=== PATIENT | male | born 1975 | race Caucasian/White ===

== ENCOUNTER 2016-11-30 06:10 | Emergency (ER) | payer SELFPAY ==
[2016-11-30] MEDS ORDERED: Albuterol/Ipratropium NEB.SOL* Albuterol 2.5 MG/Ipratropium 0.5 MG 3 ML ONE (06:21)
[2016-11-30] MEDS ORDERED: Albuterol/Ipratropium NEB.SOL* Albuterol 2.5 MG/Ipratropium 0.5 MG 3 ML INH ONE (06:32)
[2016-11-30] MEDS ORDERED: predniSONE TAB* 20 MG PO ONE (08:16)
[2016-11-30] MEDS ORDERED: Albuterol HFA INHALER* 8 gm MDI INH ONE (08:19)
[2016-11-30 11:35] VITALS: BP 124/95
--- NOTE | 2016-12-07 21:56 | ED ---
Deena Gauthier SooYoung, scribed for Allen Lucero MD on 11/30/16 at 0751 . Asthma - HPI Summary HPI Summary: A 41 y/o M presents to ED with SOB onset yesterday afternoon. Pert PMHx: seasonal asthma, sleep apnea. Pt states he lost his inhaler. Associated sx: cough. Denies fever. Aggravating factors: deep breaths. Pt is a smoker. He states feeling better at bedside after ED treatment. He doesn't have insurance or a PCP. Former [employer]. - History of Current Complaint Chief Complaint: EDAsthma Stated Complaint: ASTHMA ATTACK Hx Obtained From: Patient Onset/Duration: Lasting Hours - onset yesterday afternoon, Resolved - ED treatment Timing: Constant Initial Severity: Moderate Current Severity: None Pain Intensity: 0 Pain Scale Used: 0-10 Numeric Location/Character: Cough (Nonproductive) Aggravating Symptoms: Weather Change - "summer allergies", Other: - deep breaths - Allergy/Home Medications Allergies/Adverse Reactions: Allergies Allergy/AdvReac Type Severity Reaction Status Date / Time Aspirin [ASA] Allergy Unknown Unknown Verified 12/25/14 08:17 Reaction Details PMH/Surg Hx/FS Hx/Imm Hx Previously Healthy: No Respiratory History: Reports: Hx Asthma Psychiatric History: Reports: Hx Anxiety, Hx Depression Infectious Disease History: No Infectious Disease History: Denies: Traveled Outside the [place] in Last 30 Days - Family History Known Family History: Negative: Cardiac Disease, Hypertension, Diabetes - Social History Occupation: Employed Full-time Lives: With Family Alcohol Use: Weekly Alcohol Amount: "most days" Hx Substance Use: No Substance Use Type: Reports: None Hx Tobacco Use: Yes Smoking Status (MU): Heavy Every Day Tobacco Smoker Review of Systems Negative: Fever, Chills Negative: Erythema Negative: Sore Throat Negative: Chest Pain Positive: Shortness Of Breath, Cough Negative: Abdominal Pain, Vomiting, Nausea Negative: dysuria, hematuria Negative: Myalgia, Edema Negative: Rash Neurological: Other - neg: dizziness All Other Systems Reviewed And Are Negative: Yes Physical Exam - Summary Physical Exam Summary: Constitutional: Well-developed, Well-nourished, Alert. (-) Distressed Skin: Warm, Dry HENT: Normocephalic; Atraumatic Eyes: Conjunctiva normal Neck: Musculoskeletal ROM normal neck. (-) JVD, (-) Stridor, (-) Tracheal deviation Cardio: Rhythm regular, rate normal, Heart sounds normal; Intact distal pulses; The pedal pulses are 2+ and symmetric. Radial pulses are 2+ and symmetric. (-) Murmur Pulmonary/Chest wall: Diminished breath sounds. (-) Respiratory distress, (-) Wheezes, (-) Rales Abd: Soft, (-) Tenderness, (-) Distension, (-) Guarding, (-) Rebound Musculoskeletal: (-) Edema Lymph: (-) Cervical adenopathy Neuro: Alert, Oriented x3 Psych: Mood and affect Normal Triage Information Reviewed: Yes Vital Signs On Initial Exam: Initial Vitals BP 115/71 11/30/16 06:13 Vital Signs Reviewed: Yes - Monica Coma Scale Coma Scale Total: 15 Diagnostics - Vital Signs Vital Signs Temp Pulse Resp BP Pulse Ox 11/30/16 07:00 126/77 11/30/16 06:48 95 96 11/30/16 06:30 89 104/68 100 11/30/16 06:23 97.8 F 90 26 115/71 100 11/30/16 06:16 98 F 99 22 115/71 96 11/30/16 06:15 97 95 11/30/16 06:13 115/71 - Laboratory Lab Statement: Any lab studies that have been ordered have been reviewed, and results considered in the medical decision making process. Asthma Course/Dx - Course Course Of Treatment: Pt is a 41 y/o M presenting with SOB onset yesterday afternoon. Pert PMHx: seasonal asthma, sleep apnea. Pt states he lost his inhaler. Associated sx: cough. Denies fever. Aggravating factors: deep breaths. Pt is a smoker. He doesn't have insurance or a PCP. [employer]. Pt given duoneb, prednisone in ED. Pt is improved after treatment. Will D/C, pt given written prescriptions for Albuterol, Prednisone. [place] [facility]. - Diagnoses Provider Diagnoses: Asthma exacerbation Discharge - Discharge Plan Condition: Stable Disposition: HOME Patient Education Materials: Prednisone (By mouth), Asthma (ED) Referrals: [facility] [place] [Outside] Additional Instructions: Return to the emergency department for changing or worsening or persistent symptoms. The documentation as recorded by the Deena ramsay SooYoung accurately reflects the service I personally performed and the decisions made by me, Allen Lucero MD.
== END 2016-11-30 10:10 | disposition home or self-care (01) ==
LOC: ED 06:10
DX: J45.901 Unspecified asthma with (acute) exacerbation (principal); R06.02 Shortness of breath; R05 Cough; F17.210 Nicotine dependence, cigarettes, uncomplicated
CPT/HCPCS: 99283; A9270-GY; J7512